=== PATIENT | male | born 1955 | race Caucasian/White ===

== ENCOUNTER 2018-04-18 14:27 | Inpatient (IN) | payer BC ==
[~2018-04-18] VITALS: Ht 182.9 cm; Wt 80.7 kg
[2018-04-18] MEDS ORDERED: MOBIC7.5 MG PO (14:35)
[2018-04-18] MEDS ORDERED: LISINOPRIL20 MG PO (14:35)
[2018-04-18 15:06] LABS: BASOPHILS 0.1 % (0-2); EOSINOPHILS 0.2 % (0-7); HEMATOCRIT 50.4 % (42.0-54.0); HEMOGLOBIN 17.1 g/dL (13.5-17.5); IMMATURE GRANULOCYTES 0.2 % (0-5); LYMPHOCYTES 6.4 % (15-50); MCH 31.5 pg (26.0-34.0); MCHC 33.9 g/dL (31.0-37.0); MCV 92.8 fL (80.0-100.0); MEAN PLATELET VOLUME 10.3 fL (7.4-10.4); MONOCYTES 6.3 % (2-11); NEUTROPHILS 86.8 % (40-80); PLATELET COUNT 214 10x3/uL (130-400); RBC 5.43 10x6/uL (4.20-6.10); RDW 12.1 % (11.5-14.5)
[2018-04-18 15:14] LABS: APPEARANCE CLEAR (CLEAR); COLOR YELLOW (YELLOW)
[2018-04-18 15:15] LABS: BILIRUBIN NEGATIVE (NEGATIVE); GLUCOSE NEGATIVE (NEGATIVE); KETONE NEGATIVE (NEGATIVE); NITRITE NEGATIVE (NEGATIVE); PROTEIN TRACE mg/dL (NEGATIVE); UROBILINOGEN NORMAL (NORMAL)
[2018-04-18 15:38] LABS: ALBUMIN 4.3 g/dL (3.4-5.0); ANION GAP 16.5 mmol/L (8-16); BILIRUBIN - TOTAL 0.9 mg/dL (0.2-1.3); CALCIUM 10.1 mg/dL (8.5-10.1); CARBON DIOXIDE 29.8 mmol/L (21.0-32.0); CREATININE - SERUM 1.4 mg/dL (0.6-1.3); POTASSIUM - SERUM 4.3 mmol/L (3.5-5.1); PROTEIN - SERUM 8.6 g/dL (6.4-8.2)
--- NOTE | 2018-04-18 21:30 | NUR ---
RECIEVED PT TO FLOOR VIA WHEELCHAIR. FAMILY AT BEDSIDE. ALERT AND ORIENTED. IV RIGHT AC INFUSING D5LR @ 75. NG TUBE LEFT NARE CONNECTED TO LIS. ABD SLIGHTLY DISTENDED, TENDER LLQ. BOWEL SOUNDS HYPOACTIVE. PT NOT NAUSEAS AT THIS TIME BUT HAS BEEN AND VOMITING BEFORE. PT STATES HE HAS NOT HAD A BM SINCE WEDNESDAY. NO PAIN AT THIS TIME. DENIES NEEDS. CL IN REACH, WILL CONTINUE TO MONITOR
[2018-04-19] VITALS: BP 138/86
--- NOTE | 2018-04-19 01:45 | NUR ---
PT STATES HE IS HAVING SOME DISCOMFORT. MORPHINE GIVEN ORDERED. NO OTHER NEEDS OR COMPLAINTS AT THIS TIME. CL IN REACH, WILL CONTINUE TO MONITOR
[2018-04-19 03:52] VITALS: BMI 24.2
[2018-04-19 04:00] VITALS: BP 130/70
[2018-04-19 05:18] LABS: ANION GAP 11.1 mmol/L (8-16); CALCIUM 8.8 mg/dL (8.5-10.1); CARBON DIOXIDE 29.1 mmol/L (21.0-32.0); CREATININE - SERUM 1.1 mg/dL (0.6-1.3); MAGNESIUM - SERUM 2.1 mg/dL (1.8-2.4); POTASSIUM - SERUM 4.2 mmol/L (3.5-5.1)
--- NOTE | 2018-04-19 07:30 | NUR ---
RECD IN WALKING ROUND AWAKE AND ALERT. RESP EVEN AND UNLABORED WITH NO DISTRESS NOTED. NG TUBE LEFT NARE TO LIWS. NO C/O NOTED OR VOICED. ASSESSMENT COMPLETED. C/L IN REACH AT BEDSIDE.
[2018-04-19 07:47] LABS: BASOPHILS 0.2 % (0-2); EOSINOPHILS 0.6 % (0-7); HEMATOCRIT 43.6 % (42.0-54.0); HEMOGLOBIN 14.5 g/dL (13.5-17.5); IMMATURE GRANULOCYTES 0.2 % (0-5); LYMPHOCYTES 9.5 % (15-50); MCH 31.3 pg (26.0-34.0); MCHC 33.3 g/dL (31.0-37.0); MEAN PLATELET VOLUME 10.6 fL (7.4-10.4); MONOCYTES 8.4 % (2-11); NEUTROPHILS 81.1 % (40-80); PLATELET COUNT 202 10x3/uL (130-400); RBC 4.64 10x6/uL (4.20-6.10); RDW 12.5 % (11.5-14.5)
[2018-04-19 09:23] VITALS: BP 120/81
[2018-04-19 12:31] VITALS: Ht 182.9 cm; Wt 80.7 kg
--- NOTE | 2018-04-19 13:32 | NUR ---
ANAESTHESIOLOGIST NOTES - PT ALERT X 4. BOWEL SOUNDS HYPOACTIVE. NG TUBE TO LEFT NARE SET TO LIWS. BED LOW, CALL LIGHT IN REACH. NO OTHER NEEDS AT THIS TIME.
[2018-04-19 14:21] VITALS: BP 128/80
--- NOTE | 2018-04-19 15:35 | MORECARE ---
CASE MANAGEMENT DISCHARGE SUMMARY PATIENT: KARIS CONSTANTINO UNIT: [id number] ADM DATE: 04/18/18 AGE: 62 : 59 SEX: M ROOM/BED: D.2202 AUTHOR: ALYSON ESCOBEDO PHYSICIAN: REFERRING PHYSICIAN: JEN VALLE MD DATE OF SERVICE: 04/19/18 Discharge Plan Patient Name: KARIS CONSTANTINO [facility] [facility] 1955 Planned Disposition: Home Anticipated Discharge Date: Discharge Date: Expected LOS: Initial Reviewer: [email or web address] Initial Review Date: 04/18/2018 Generated: 04/19/18 4:35 pm DCPIA - Discharge Planning Initial Assessment Updated by [email or web address]: Arleen Cameron on 04/19/18 3:35 pm * Is the patient Alert and Oriented? Yes * How many steps to enter\exit or inside your home? * PCP Lisa * Pharmacy [facility] on [address] * Preadmission Environment Home with Family * ADLs Independent * Equipment None * List name and contact numbers for known caregivers / representatives who currently or will assist patient after discharge: Carol () [phone] * Verbal permission to speak to the caregivers and representatives has been obtained from the patient. N/A * Community resources currently utilized None Patient Name: KARIS CONSTANTINO Page [phone] at 1535 All edits/amendments must be made on the electronic document DICTATION DATE: 04/19/18 153 DEPOSITION REPORTER: HIMANSHU 04/19/18 1535 RPT#: [id number] DC DATE: STATUS: ADM IN [facility] [address] [place] [address] END OF REPORT
--- NOTE | 2018-04-19 15:44 | MORECARE ---
CASE MANAGEMENT DISCHARGE SUMMARY PATIENT: KARIS CONSTANTINO UNIT: [id number] ADM DATE: 04/18/18 AGE: 62 : 59 SEX: M ROOM/BED: D.2202 AUTHOR: GREGGDOC PHYSICIAN: REFERRING PHYSICIAN: JEN VALLE MD DATE OF SERVICE: 04/19/18 Discharge Plan Patient Name: KARIS CONSTANTINO Facility: [facility]:[place] : 1955 Planned Disposition: Home Anticipated Discharge Date: Discharge Date: Expected LOS: Initial Reviewer: [email or web address] Initial Review Date: 04/18/2018 Generated: 04/19/18 4:44 pm Comments DCP- Discharge Planning Updated by [email or web address]: Arleen Cameron on 04/19/18 2:[address] Patient Name: KARIS CONSTANTINO Admission Status: ER Accout number: [id number] Admission Date: 04-18-2018 : 1955 Admission Diagnosis: Attending: JEN VALLE Current LOS: 1 Anticipated DC Date: Planned Disposition: Home Primary Insurance: [employer] OUT OF STATE Discharge Planning Comments: CM met with patient to complete initial dc planning assessment. CM educated patient on the CM role and verbal consent given by patient to complete assessment. Patient lives at [facility] with his , Carol. At discharge patient plans to return home and feels this is a safe discharge. 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 CM discussed availability of home health, rehab services, and medical equipment. Patient denied known discharge needs at this time. CM will continue to follow and will assist as needed with dc plans/needs. Coding Analyst: Arleen Cameron DCPIA - Discharge Planning Initial Assessment Updated by [email or web address]: Arleen Cameron on 04/19/18 3:35 pm * Is the patient Alert and Oriented? Yes * How many steps to enter\exit or inside your home? * PCP Lisa * [facility] [address] * Preadmission Environment Home with Family * ADLs Independent * Equipment None * List name and contact numbers for known caregivers / representatives who currently or will assist patient after discharge: Carol () [phone] * Verbal permission to speak to the caregivers and representatives has been obtained from the patient. N/A * Community resources currently utilized None * Additional services required to return to the preadmission environment? No * Can the patient safely return to the preadmission environment? Yes * Has this patient been hospitalized within the prior 30 days at any hospital? No Last DP export: 04/19/18 2:35 p Patient Name: KARIS CONSTANTINO Page 15038 at 1544 All edits/amendments must be made on the electronic document DICTATION DATE: 04/19/181543 TALK SHOW HOST: HIMANSHU 04/19/181543 RPT#: [id number] DC DATE: STATUS: ADM IN [facility] [address] [place] [address] END OF REPORT
[2018-04-19 17:18] VITALS: BP 133/79
--- NOTE | 2018-04-19 19:55 | NUR ---
PT RESTING IN BED. ALERT AND ORIENTED. NO SIGNS OF DISTRESS. BREATHING EVEN AND UNLABORED. PT STATES NO PROBLEMS AT THIS TIME. SKIN CLEAN DRY AND INTACT. IV SITE RT AC DRESSING CLEAN DRY AND INTACT. NO SIGNS OF INFECTION. BOWEL SOUNDS ACTIVE. NO LOWER LEG SWELLING PRESENT. NG TUBE LT NARE TO LIS. WILL CONTINUE PLAN OF CARE. CALL LIGHT IN REACH. BED LOWERED AND LOCKED. BED RAILS UP X2.
[2018-04-19 20:00] VITALS: BP 115/70
[2018-04-20 04:00] VITALS: BP 132/75
[2018-04-20 05:08] LABS: BASOPHILS 0.2 % (0-2); EOSINOPHILS 2.9 % (0-7); HEMATOCRIT 41.3 % (42.0-54.0); HEMOGLOBIN 13.6 g/dL (13.5-17.5); LYMPHOCYTES 18.9 % (15-50); MCH 31.3 pg (26.0-34.0); MCHC 32.9 g/dL (31.0-37.0); MCV 94.9 fL (80.0-100.0); MEAN PLATELET VOLUME 10.2 fL (7.4-10.4); MONOCYTES 10.5 % (2-11); NEUTROPHILS 67.5 % (40-80); PLATELET COUNT 179 10x3/uL (130-400); RBC 4.35 10x6/uL (4.20-6.10); RDW 12.5 % (11.5-14.5)
[2018-04-20 05:18] LABS: ANION GAP 9.7 mmol/L (8-16); CALCIUM 8.5 mg/dL (8.5-10.1); CARBON DIOXIDE 30.4 mmol/L (21.0-32.0); CREATININE - SERUM 1.1 mg/dL (0.6-1.3); POTASSIUM - SERUM 4.1 mmol/L (3.5-5.1)
[2018-04-20 05:23] LABS: WBC 5.6 10x3/uL (4.8-10.8)
--- NOTE | 2018-04-20 05:39 | NUR ---
PT LYING IN BED RESTING, NO SIGNS OF DISTRESS. DENIES NEEDS. CL IN REACH, WILL CONTINUE TO MONITOR
--- NOTE | 2018-04-20 07:30 | NUR ---
REC'D IN WALKING ROUNDS AWAKE AND ALERT. RESP EVEN AND UNLABORED WITH NO DISTRESS NOTED. CAN EXPRESS NEEDS AND WANTS. NG TUBE NOTED TO LEFT NARE. ASSESSMENT COMPLETED. C/L IN REACH AT BEDSIDE.
--- NOTE | 2018-04-20 07:31 | NUR ---
PATIENT STANDING UP ON SIDE OF BED WITH NO COMPLAINTS. NGT INTACT. FAMILY AT BEDSIDE. CALL LIGHT WITHIN REACH.
[2018-04-20 08:00] VITALS: BP 122/74
[2018-04-20 13:25] VITALS: BP 120/81
[2018-04-20 16:30] VITALS: BP 128/82
--- NOTE | 2018-04-20 19:55 | NUR ---
PT RESTING IN BED. ALERT AND ORIENTED. NO SIGNS OF DISTRESS. BREATHING EVEN ADN UNLABORED. PT STATES NO PROBLEMS AT THIS TIME. IV SITE RT AC DRESSING CLEAN DRY AND INTACT. NO SIGNS OF INFECTION. NG TUBE LT NARE. CLAMPED. PT STATES NO NAUSEA OR VOMITING. SKIN CLEAN DRY AND INTACT. NO LOWER LEG SWELLING PRESENT. BOWEL SOUNDS ACTIVE. WILL CONTINUE PLAN OF CARE. CALL LIGHT IN REACH. BED LOWERED AND LOCKED. BED RAILS UP X2.
[2018-04-20 20:41] VITALS: BP 144/84
--- NOTE | 2018-04-20 20:47 | NUR ---
RESING QUIETLY RESPIRATIONS WITH EASE AND UNLABORED. NO S/S OF DISTRESS. SR UP X2 CALL LIGHT WITHIN REACH.
[2018-04-21 05:52] VITALS: BP 134/78
[2018-04-21 06:14] LABS: BASOPHILS 0.2 % (0-2); EOSINOPHILS 4.4 % (0-7); HEMATOCRIT 38.4 % (42.0-54.0); HEMOGLOBIN 12.5 g/dL (13.5-17.5); IMMATURE GRANULOCYTES 0.2 % (0-5); MCH 30.6 pg (26.0-34.0); MCHC 32.6 g/dL (31.0-37.0); MCV 94.1 fL (80.0-100.0); MEAN PLATELET VOLUME 10.2 fL (7.4-10.4); MONOCYTES 8.5 % (2-11); NEUTROPHILS 66.7 % (40-80); PLATELET COUNT 161 10x3/uL (130-400); RBC 4.08 10x6/uL (4.20-6.10); WBC 5.4 10x3/uL (4.8-10.8)
[2018-04-21 06:31] LABS: CALC OSMOLALITY 288 mosm/kg (275-300); CALCIUM 8.7 mg/dL (8.5-10.1); CHLORIDE - SERUM 107 mmol/L (98-107); GLUCOSE 101 mg/dL (74-106); POTASSIUM - SERUM 3.9 mmol/L (3.5-5.1); SODIUM 143 mmol/L (136-145); UREA NITROGEN 25 mg/dL (7-18); eGFR NON AFRICAN AMERICAN 81 mL/min (90-120)
--- NOTE | 2018-04-21 07:55 | NUR ---
AWAKE AND ALERT. ORIENTED X3. NO C/O AT THIS TIME. LUNGS ARE CLEAR BILATERALLY, NO COUGH NOTED. SKIN IS INTACT WITHOUT REDNESS. IV TO RIGHT AC IS PATENT WITHOUT REDNESS AT INSERTION SITE. FAMILY AT BEDSIDE. DENIES NEEDS. UP TO BR PER SELF. URINATED WIHTOUT DIFFICULTY.
[2018-04-21 09:04] VITALS: BP 136/88
[2018-04-21 09:14] VITALS: BP 136/88
--- NOTE | 2018-04-21 09:30 | NUR ---
OFF UNIT VIA FOR EXRAY.
--- NOTE | 2018-04-21 10:33 | NUR ---
NUTRITION F/U PT REMAINS NPO. MAY BENEFIT FROM PROCALAMINE PPN IF UNABLE TO START DIET IN [address] FOLLOWING
--- NOTE | 2018-04-21 12:00 | NUR ---
UP TO SHOWER WITH SET UP ASSISTANCE. NG TUBE FELL OUT WHILE IN THE SHOWER. DENIES NEEDS. IN ROOM.
[2018-04-21 13:33] VITALS: BP 139/88
[2018-04-21 16:56] VITALS: BP 110/71
[2018-04-21 20:00] VITALS: BP 126/80
--- NOTE | 2018-04-21 21:00 | NUR ---
A&OX4. UP AD FIORDALIZA. AT BEDSIDE. PT REPORTS SEVERAL LOOSE-LIQUID STOOLS THROUGHOUT THE DAY. SUGGESTED PT INCREASE ORAL FLUID INTAKE. PT STATED HE WOULD KEEP TRACK OF NUMBER OF STOOLS.
[2018-04-22] VITALS: BP 115/72
--- NOTE | 2018-04-22 03:00 | NUR ---
I have reviewed this patient and I concur with the Shift Assessment completed by the Licensed Practical Nurse today this shift.
[2018-04-22 03:53] LABS: BASOPHILS 0.4 % (0-2); EOSINOPHILS 4.8 % (0-7); HEMATOCRIT 37.2 % (42.0-54.0); HEMOGLOBIN 12.4 g/dL (13.5-17.5); IMMATURE GRANULOCYTES 0.2 % (0-5); LYMPHOCYTES 34.4 % (15-50); MCH 30.8 pg (26.0-34.0); MCHC 33.3 g/dL (31.0-37.0); MCV 92.5 fL (80.0-100.0); MEAN PLATELET VOLUME 9.6 fL (7.4-10.4); MONOCYTES 10.7 % (2-11); NEUTROPHILS 49.5 % (40-80); PLATELET COUNT 143 10x3/uL (130-400); RBC 4.02 10x6/uL (4.20-6.10)
[2018-04-22 03:59] LABS: ANION GAP 12.6 mmol/L (8-16); CALCIUM 8.5 mg/dL (8.5-10.1); CARBON DIOXIDE 26.3 mmol/L (21.0-32.0); CREATININE - SERUM 1.1 mg/dL (0.6-1.3); POTASSIUM - SERUM 3.9 mmol/L (3.5-5.1)
[2018-04-22 04:00] VITALS: BP 118/76
[2018-04-22 08:06] VITALS: BP 132/80
[2018-04-22] MEDS ORDERED: MIRALAX17 GM PO (08:47)
--- NOTE | 2018-04-22 08:47 | NUR ---
AWAKE AND ALERT. ORIENTED X3. NO C/O THIS AM. LUNGS ARE CLEAR BILATERALLY, NO COUGH NOTED. SKIN IS INTACT WITHOUT REDNESS. BOWEL SOUNDS PRESENT AND ACTIVE X4. NO IV AT THIS TIME. ANXIOUS TO GO HOME. AT BEDSIDE.
--- NOTE | 2018-04-22 09:33 | MORECARE ---
CASE MANAGEMENT DISCHARGE SUMMARY PATIENT: KARIS CONSTANTINO UNIT: [id number] ADM DATE: 04/18/18 AGE: 62 : 59 SEX: M ROOM/BED: D.2202 AUTHOR: ALYSON ESCOBEDO PHYSICIAN: REFERRING PHYSICIAN: JEN VALLE MD DATE OF SERVICE: 04/22/18 Discharge Plan Patient Name: KARIS CONSTANTINO Facility: [facility]:[place] : 1955 Planned Disposition: Home Anticipated Discharge Date: Discharge Date: Expected LOS: Initial Reviewer: [email or web address] Initial Review Date: 04/18/2018 Generated: 04/22/18 10:33 am Comments DCP- Discharge Planning Updated by [email or web address]: Arleen Cameron on 04/22/18 8:[address] Patient Name: KARIS CONSTANTINO Encounter No: [id number] : 1955 Primary Insurance: [employer] OUT OF [facility] Anticipated DC Date: Planned Disposition: Home External Planned Provider: : DCP follow-up note: Patient and family in agreement with discharge plan. No changes to plan. Case management will follow and assist as needed. Arleen Cameron DCP- Discharge Planning Updated by [email or web address]: Arleen Cameron on 04/19/18 2:[address] Patient Name: KARIS CONSTANTINO Admission Status: ER Accout number: [id number] Admission Date: 04-18-2018 : 1955 Admission Diagnosis: Attending: JEN VALLE Current LOS: 1 Anticipated DC Date: Planned Disposition: Home Primary Insurance: [employer] OUT OF STATE Discharge Planning Comments: CM met with patient to complete initial dc planning assessment. CM educated patient on the CM role and verbal consent given by patient to complete assessment. Patient lives at [facility] with his , Carol. At discharge patient plans to return home and feels this is a safe discharge. Carol will be his drivers' cash clerk home. CM discussed availability of home health, rehab services, and medical equipment. Patient denied known discharge needs at this time. CM will continue to follow and will assist as needed with dc plans/needs. Firearms Expert: Arleen Cameron DCPIA - Discharge Planning Initial Assessment Updated by [email or web address]: Arleen Cameron on 04/19/18 3:35 pm * Is the patient Alert and Oriented? Yes * How many steps to enter\exit or inside your home? * PCP Lisa * [facility] on [address] * Preadmission Environment Home with Family * ADLs Independent * Equipment None * List name and contact numbers for known caregivers / representatives who currently or will assist patient after discharge: Carol () [phone] * Verbal permission to speak to the caregivers and representatives has been obtained from the patient. N/A * Community resources currently utilized None * Additional services required to return to the preadmission environment? No * Can the patient safely return to the preadmission environment? Yes * Has this patient been hospitalized within the prior 30 days at any hospital? No Last DP export: 04/19/18 2:44 p Patient Name: KARIS CONSTANTINO Page [id number] at 0933 All edits/amendments must be made on the electronic document DICTATION DATE: 04/22/18931 PLASTICS TECHNICIAN: HIMANSHU 04/22/18931 RPT#: [id number] DC DATE: STATUS: ADM IN [facility] [address] [place] [address] END OF REPORT
--- NOTE | 2018-04-22 10:30 | NUR ---
DISCHARGED TO HOME AMBULATORY WITH FAMILY. DISCHARGE INSTRUCTIONS GIVNE BOTH VERBALLY AND WRITTEN. ALL QUESTIONS ANSWERED. PATIENT AND VERBALIZED UNDERSTANDING OF SAME. ALL BELONGINGS WITH PATIENT.
--- NOTE | 2018-04-25 10:21 | MORECARE ---
CASE MANAGEMENT DISCHARGE SUMMARY PATIENT: KARIS CONSTANTINO UNIT: [id number] ADM DATE: 04/18/18 AGE: 62 : 59 SEX: M ROOM/BED: D.2202 AUTHOR: ALYSON ESCOBEDO PHYSICIAN: REFERRING PHYSICIAN: JEN VALLE MD DATE OF SERVICE: 04/25/18 Discharge Plan Patient Name: KARIS CONSTANTINO Facility: [facility]:[place] : 1955 Planned Disposition: Home Anticipated Discharge Date: Discharge Date: 04/22/2018 Expected LOS: 0 Initial Reviewer: [email or web address] Initial Review Date: 04/18/2018 Generated: 04/25/18 11:21 am Comments DCP- Discharge Planning Updated by [email or web address]: Arleen Cameron on 04/22/18 8:[address] Patient Name: KARIS CONSTANTINO Encounter No: [id number] : 1955 Primary Insurance: [employer] OUT OF [facility] Anticipated DC Date: Planned Disposition: Home External Planned Provider: : DCP follow-up note: Patient and family in agreement with discharge plan. No changes to plan. Case management will follow and assist as needed. Arleen Cameron DCP- Discharge Planning Updated by [email or web address]: Arleen Cameron on 04/19/18 2:[address] Patient Name: KARIS CONSTANTINO Admission Status: ER Accout number: [id number] Admission Date: 04-18-2018 : 1955 Admission Diagnosis: Attending: JEN VALLE Current LOS: 1 Anticipated DC Date: Planned Disposition: Home Primary Insurance: [employer] OUT OF STATE Discharge Planning Comments: CM met with patient to complete initial dc planning assessment. CM educated patient on the CM role and verbal consent given by patient to complete assessment. Patient lives at [facility] with his , Carol. At discharge patient plans to return home and feels this is a safe discharge. 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 CM discussed availability of home health, rehab services, and medical equipment. Patient denied known discharge needs at this time. CM will continue to follow and will assist as needed with dc plans/needs. Real Estate Professor: Arleen Cameron DCPIA - Discharge Planning Initial Assessment Updated by [email or web address]: Arleen Cameron on 04/19/18 3:35 pm * Is the patient Alert and Oriented? Yes * How many steps to enter\exit or inside your home? * PCP Lisa * [facility] [address] * Preadmission Environment Home with Family * ADLs Independent * Equipment None * List name and contact numbers for known caregivers / representatives who currently or will assist patient after discharge: Carol () [phone] * Verbal permission to speak to the caregivers and representatives has been obtained from the patient. N/A * Community resources currently utilized None * Additional services required to return to the preadmission environment? No * Can the patient safely return to the preadmission environment? Yes * Has this patient been hospitalized within the prior 30 days at any hospital? No Last DP export: 04/22/18 8:33 am Patient Name: KARIS CONSTANTINO Page [id number] at 1021 All edits/amendments must be made on the electronic document DICTATION DATE: 04/25/18 1021 OPERATING SYSTEM PROGRAMMER: HIMANSHU 04/25/18 1021 RPT#: [id number] DC DATE:04/22/18 STATUS: DIS IN [facility] [address] [place] [address] END OF REPORT
== END 2018-04-22 10:30 | disposition home or self-care (01) | DRG 389 ==
LOC: EDBD 14:27 → D.ER 14:27 → D.MS 19:30 → D.EDHOLD 19:30 → D.MS 20:26
PROVIDERS: Emergency Medicine; ADMIT Internal Medicine Nephrology; ATTEND Internal Medicine Nephrology
DX: K56.609 Unspecified intestinal obstruction, unspecified as to partial versus complete obstruction (principal); N17.9 Acute kidney failure, unspecified; I10 Essential (primary) hypertension